=== PATIENT | female | born 1950 | race Caucasian/White ===

== ENCOUNTER 2024-05-21 08:15 | Emergency (ER) | payer OTHER ==
[~2024-05-21] VITALS: Ht 167.6 cm; Wt 68.2 kg
[2024-05-21 08:49] LABS: Basophils # (auto) 0.1 10 ^3/uL (0-0.2); Basophils % (auto) 0.9 % (0.0-2.0); Eosinophils # (auto) 0.1 10 ^3/uL (0-0.8); Eosinophils % (auto) 1.2 % (0.0-7.0); Hematocrit 40.7 % (36.0-46.0); Hemoglobin 13.8 g/dL (12.2-16.2); Lymphocytes # (auto) 2.1 10 ^3/uL (0.4-5.4); Lymphocytes % (auto) 17.4 % (10.0-50.0); Mean Corpuscular Hgb Conc. 33.8 g/dL (32.0-36.0); Mean Corpuscular Volume 94.6 fL (80.0-100.0); Monocytes # (auto) 0.4 10 ^3/uL (0-1.3); Monocytes % (auto) 3.1 % (0.0-12.0); Neutrophils # (auto) 9.5 10 ^3/uL (1.6-8.6); Neutrophils % (auto) 77.4 % (37.0-80.0); Nucleated Red Blood Cells % 0.1 %; Red Cell Distribution Width 15.9 % (11.8-14.3); White Blood Cell 12.2 10^3/uL (4.4-10.8)
[2024-05-21 08:57] LABS: Chloride 110 mmol/L (98-107); Potassium 3.8 mmol/L (3.5-5.1); Sodium 141 mmol/L (136-145)
[2024-05-21 08:58] LABS: Anion Gap 5 (5-15); Calcium 9.6 mg/dL (8.7-10.4); Carbon Dioxide 26 mmol/L (20-30)
[2024-05-21 09:03] LABS: Blood Urea Nitrogen 19 mg/dL (9-23); Glucose 123 mg/dL (74-106)
[2024-05-21 09:10] VITALS: PULSE 75; RESP 13; O2SAT 94
[2024-05-21] MEDS ORDERED: AMOX500C2 PO (09:40)
[2024-05-21] MEDS ORDERED: METR-344 PO (09:40)
[2024-05-21] MEDS ORDERED: ZOFR4T PO (09:40)
[2024-05-21] MEDS: SODIUM CHLORIDE 0.9% 1,000 ML IV ONE (10:45)
[2024-05-21 12:00] VITALS: BP 129/80; PULSE 77; RESP 18; O2SAT 94
[2024-05-21 12:55] LABS: Urine Bacteria None Seen /hpf (None Seen)
[2024-05-21] MEDS: DIPHENOXYLATE W/ATROPINE 2.5 MG TAB PO ONE (12:59)
[2024-05-21] MEDS: HYDROcodone-ACET 5/325MG TAB PO ONE (12:59)
[2024-05-21] MEDS: cefTRIAXone 1GM/50ML D5W 50 ML IV ONE (13:00)
[2024-05-21 13:02] LABS: Urine Blood 1+ /uL (Negative); Urine Clarity Turbid (Clear); Urine Color Light-Yellow (Yellow); Urine Protein, UAD TRACE (Negative); Urine Specific Gravity 1.023 (1.001-1.035); Urine Urobilinogen Normal (Negative); Urine WBC 1 /hpf (0 - 5); Urine pH 5.5 (5.0-9.0)
== END 2024-05-21 16:14 | disposition home or self-care (01) ==
LOC: ER 08:15 → EDBD 08:15 → ER 16:14
DX: J40 Bronchitis, not specified as acute or chronic (principal); K52.9 Noninfective gastroenteritis and colitis, unspecified; Z88.2 Allergy status to sulfonamides
CPT/HCPCS: 36415; 71045; 80048; 81001; 84484; 85025; 96361; 96365; 99285; J0696; J7030